=== PATIENT | female | born 1945 | race Caucasian/White ===

== ENCOUNTER 2018-02-17 17:57 | Emergency (ER) | payer OTHER ==
[~2018-02-17] VITALS: Ht 172.7 cm; Wt 95.7 kg
[~2018-02-17 17:57] MED LIST: ADULT LOW DOSE81 MG PO; AMBIEN 10 MG TA10 MG PO; ESTRACE0.5 MG PO; ETODOLAC 400 M400 M1 PO; HYDROCHLOROTHIA25 M1 PO; IMITREX 50 MG T50 M1 PO; LESCOL40 MG PO; LEVOTHYROXIN0.125 M1 PO; LEVOTHYROXINE0.2 M1 PO; MULTIVITAMINS PO; NORCO 5-325 TA1 EACH PO; NORFLEX100 MG PO; UNIVASC15 MG PO; VICODIN 5-5001 EACH PO; VITCB500GO PO; ZOCOR 20 MG TAB20 M1 PO
[2018-02-17] MEDS ORDERED: OMEPRAZOLE 20 M20 M1 PO (18:22)
[2018-02-17] MEDS ORDERED: VITAMIN D1000 UNI1 PO (18:23)
[2018-02-17] MEDS ORDERED: HEALTHY EYES C1 EACH PO (18:23)
[2018-02-17] MEDS ORDERED: LIPITOR 20 MG T20 M1 PO (18:23)
[2018-02-17] MEDS ORDERED: FISH OIL 1,001000 M2 PO (18:23)
[2018-02-17] MEDS ORDERED: NORCO 5-325 TA1 EACH PO (19:48)
[2018-02-17 20:27] VITALS: BP 146/65
== END 2018-02-17 20:28 | disposition home or self-care (01) ==
LOC: M.ERS 17:57
DX: S22.080A Wedge compression fracture of T11-T12 vertebra, initial encounter for closed fracture (principal); M32.9 Systemic lupus erythematosus, unspecified; M79.7 Fibromyalgia; Z90.710 Acquired absence of both cervix and uterus; Z96.653 Presence of artificial knee joint, bilateral; W10.8XXA Fall (on) (from) other stairs and steps, initial encounter; Y93.89 Activity, other specified; Y92.098 Other place in other non-institutional residence as the place of occurrence of the external cause; Y99.8 Other external cause status

== ENCOUNTER → 2018-02-26 | Outpatient (CLI) | payer OTHER ==
[~2018-02-26] VITALS: Ht 172.7 cm; Wt 93.0 kg
[~2018-02-26] MED LIST changes: +CIPROFLOXIN HC2.5 M1 OPHTHALMIC; +DEXAMETHASONE 0.5 M1 OPHTHALMIC; +FISH OIL 1,001000 M2 PO; +HEALTHY EYES C1 EACH PO; +KETOROLAC 0.5% E5 ML OPHTHALMIC; +LIPITOR 20 MG T20 M1 PO; +OMEPRAZOLE 20 M20 M1 PO; +POLYMYXIN B/TMP10 ML OPHTHALMIC; +VITAMIN D1000 UNI1 PO
[2018-02-26 09:53] VITALS: BP 146/67
[2018-02-26 10:14] LABS: HEMATOCRIT 42.3 % (37.0-47.0); HEMOGLOBIN 14.4 gm/dL (12.0-15.0); MCH 30.2 pg (26.0-34.0); MCHC 33.9 g/dL (28.0-37.0); MPV 9.1 fl. (7.2-11.1); RBC 4.75 mil/uL (4.20-5.00); RDW-CV 13.4 % (10.5-14.5); WBC 6.3 thou/uL (4.0-11.0)
[2018-02-26 10:19] LABS: APTT 27.2 Seconds (25.0-31.3); CALCIUM 9.3 mg/dL (8.5-10.1); CREATININE 0.7 mg/dL (0.6-1.3); INR 1.1; POTASSIUM 3.3 mmol/L (3.5-5.1); PROTIME 11.1 Seconds (9.20-11.50)
[2018-02-26 10:29] LABS: ALBUMIN 3.8 g/dL (3.4-5.0); TOTAL BILIRUBIN 0.6 mg/dL (<0.1-1.0); TOTAL PROTEIN 7.7 g/dL (6.4-8.2)
[2018-02-26 10:42] VITALS: BP 156/69
[2018-02-26 12:30] VITALS: BP 161/58
[2018-02-26 13:00] VITALS: BP 155/58
[2018-02-26 16:40] VITALS: BP 148/62
== END ==
LOC: M.ERS 08:50 → M.INT 08:50
PROVIDERS: Radiology Diagnostic Radiology
DX: Z00.01 Encounter for general adult medical examination with abnormal findings (principal); S22.009D Unspecified fracture of unspecified thoracic vertebra, subsequent encounter for fracture with routine healing; E55.9 Vitamin D deficiency, unspecified; R30.0 Dysuria; M81.0 Age-related osteoporosis without current pathological fracture; E78.00 Pure hypercholesterolemia, unspecified; N95.1 Menopausal and female climacteric states; E03.9 Hypothyroidism, unspecified; M79.7 Fibromyalgia; M32.9 Systemic lupus erythematosus, unspecified; X58.XXXD Exposure to other specified factors, subsequent encounter; Z79.890 Hormone replacement therapy; Z90.710 Acquired absence of both cervix and uterus; Z90.49 Acquired absence of other specified parts of digestive tract; Z96.651 Presence of right artificial knee joint; Z96.652 Presence of left artificial knee joint